=== PATIENT | male | born 1980 | race Hispanic/Latino ===

== ENCOUNTER 2020-10-17 16:51 | Emergency (ER) | payer BC | END 2020-10-17 19:15 | disposition home or self-care (01) | LOC: EDH 16:51 | DX: M79.662 Pain in left lower leg (principal); I12.0 Hypertensive chronic kidney disease with stage 5 chronic kidney disease or end stage renal disease; E11.22 Type 2 diabetes mellitus with diabetic chronic kidney disease; N18.6 End stage renal disease | CPT/HCPCS: 93971 ==

== ENCOUNTER 2020-11-18 13:02 | Inpatient (IN) | payer SELFPAY ==
[~2020-11-18] VITALS: Ht 170.2 cm; Wt 98.2 kg
[2020-11-18 14:26] LABS: BASOPHILS % (AUTO) 1.4 % (0.0-5.0); EOSINOPHILS % (AUTO) 1.9 % (0.0-8.0); HEMATOCRIT 32.7 % (42-54); LYMPHOCYTES % (AUTO) 18.5 % (21.0-51.0); MEAN CORPUSCULAR HEMOGLOBIN 29.9 pg (27.0-33.0); MEAN CORPUSCULAR HGB CONC 33.6 g/dL (32.0-36.0); MEAN CORPUSCULAR VOLUME 88.9 fL (79-99); MONOCYTES % (AUTO) 6.1 % (3.0-13.0); NEUTROPHILS % (AUTO) 71.7 % (40.0-77.0); PLATELET COUNT (AUTO) 405 K/uL (130-400); RED BLOOD CELL COUNT(AUTO) 3.68 MIL/uL (4.50-6.20); RED CELL DISTRIBUTION WIDTH 12.5 % (11.0-15.5)
[2020-11-18 14:43] LABS: POTASSIUM 3.8 mmol/L (3.5-5.1)
[2020-11-18 14:48] LABS: ALBUMIN 3.5 g/dL (3.5-5.0); BILIRUBIN,TOTAL 0.3 mg/dL (0.2-1.0)
[2020-11-18 14:51] LABS: INR 1.02 (0.85-1.15); PROTHROMBIN TIME 10.6 SEC (9.6-11.6)
[2020-11-18 14:52] LABS: PARTIAL THROMBOPLASTIN TIME 25.6 SEC (26.3-35.5)
[2020-11-18] MEDS ORDERED: MORPHINE 2 MG SYG ONE (15:01)
[2020-11-18] MEDS ORDERED: CLINDAMYCIN IVPB 600MG/50ML 50 ML IV ONE (15:57)
[2020-11-18] MEDS ORDERED: ZOSYN 3.375GM+NS 50ML 50 ML IV ONE (16:45)
[2020-11-18] MEDS ORDERED: VANCOMYCIN 1G 1.5 GM in 0.9% NACL 250ML 250 ML IV SCH (17:00)
[2020-11-18] MEDS ORDERED: ACETAMINOPHEN 325 MG TAB PO PRN ×2 (17:30)
[2020-11-18] MEDS ORDERED: ONDANSETRON 4MG INJ IV PRN (17:30)
[2020-11-18] MEDS ORDERED: VANCOMYCIN 1G/250ML KIT 250 ML IV SCH (17:30)
[2020-11-18] MEDS ORDERED: VANCOMYCIN PROTOCOL PER PHARMACY IV SCH (18:30)
[2020-11-18 18:54] LABS: HEMOGLOBIN A1C 11.4 % (4.0-6.0)
[2020-11-18] MEDS ORDERED: CARV25TA PO (20:39)
[2020-11-18] MEDS ORDERED: FOLI1TAB85 PO (20:39)
[2020-11-18] MEDS ORDERED: CALC-1125 PO (20:39)
[2020-11-18] MEDS ORDERED: AMLO-258 PO (20:39)
[2020-11-18] MEDS ORDERED: ACET-2247 PO (20:39)
[2020-11-18] MEDS ORDERED: GLIP5POW MC (20:39)
[2020-11-18] MEDS ORDERED: INSULIN HUMULIN R 100 UNIT/ML 3ML SQ SCH (21:00)
[2020-11-18 21:19] VITALS: BP 154/95
[2020-11-18] MEDS: INSULIN LISPRO 100 UNIT/ML 3ML SQ SCH (22:00)
[2020-11-18] MEDS: ZOSYN 3.375GM+NS 50ML 50 ML IV SCH (22:38)
[2020-11-18] MEDS: FAMOTIDINE 20MG VIAL IV SCH (22:39)
[2020-11-18] MEDS: MORPHINE 2 MG SYG IV PRN (22:41)
[2020-11-18] MEDS: HEPARIN 5,000 UNIT VIAL SQ SCH (22:55)
[2020-11-18] MEDS: INSULIN GLARGINE 100 UNITS/ML 10 ML VIAL SQ SCH (22:56)
[2020-11-19 00:19] VITALS: BP 139/79
[2020-11-19] MEDS: MORPHINE 2 MG SYG IV PRN (03:34)
[2020-11-19 03:54] VITALS: BP 139/70
[2020-11-19 06:13] LABS: BASOPHILS % (AUTO) 1.1 % (0.0-5.0); HEMATOCRIT 32.4 % (42-54); LYMPHOCYTES % (AUTO) 22.1 % (21.0-51.0); MEAN CORPUSCULAR HEMOGLOBIN 29.2 pg (27.0-33.0); MEAN CORPUSCULAR HGB CONC 31.8 g/dL (32.0-36.0); MEAN CORPUSCULAR VOLUME 91.8 fL (79-99); MONOCYTES % (AUTO) 7.7 % (3.0-13.0); NEUTROPHILS % (AUTO) 64.8 % (40.0-77.0); PLATELET COUNT (AUTO) 420 K/uL (130-400); RED BLOOD CELL COUNT(AUTO) 3.53 MIL/uL (4.50-6.20); RED CELL DISTRIBUTION WIDTH 12.5 % (11.0-15.5); WHITE BLOOD COUNT (AUTO) 10.7 K/uL (4.8-10.8)
[2020-11-19] MEDS: ZOSYN 3.375GM+NS 50ML 50 ML IV SCH ×2 (06:26→20:40)
[2020-11-19 06:28] LABS: PROTHROMBIN TIME 10.9 SEC (9.6-11.6)
[2020-11-19 06:30] LABS: PARTIAL THROMBOPLASTIN TIME 26.9 SEC (26.3-35.5)
[2020-11-19 06:31] LABS: BILIRUBIN,TOTAL 0.5 mg/dL (0.2-1.0); CREATININE 6.4 mg/dL (0.5-1.5); TOTAL PROTEIN, SERUM 7.1 g/dL (6.0-8.3)
[2020-11-19] MEDS: INSULIN LISPRO 100 UNIT/ML 3ML SQ SCH ×7 (06:39→20:38)
[2020-11-19] MEDS ORDERED: INSULIN LISPRO 100 UNIT/ML 3ML SQ SCH (07:30)
[2020-11-19 08:00] VITALS: BP 170/87
[2020-11-19] MEDS: HEPARIN 5,000 UNIT VIAL SQ SCH ×2 (09:17→20:36)
[2020-11-19 12:00] VITALS: BP 126/44
[2020-11-19 16:00] VITALS: BP 163/79
[2020-11-19] MEDS: ACETAMINOPHEN WITH CODEINE 1 TAB TAB PO PRN (17:11)
[2020-11-19 20:08] VITALS: BP 156/77
[2020-11-19] MEDS: INSULIN GLARGINE 100 UNITS/ML 10 ML VIAL SQ SCH (20:37)
[2020-11-19] MEDS: FAMOTIDINE 20MG VIAL IV SCH (20:40)
[2020-11-20] VITALS (7 sets, daily range): BP systolic 146–176; BP diastolic 70–90
[2020-11-20] MEDS: ACETAMINOPHEN WITH CODEINE 1 TAB TAB PO PRN ×4 (04:53→23:56)
[2020-11-20 05:45] LABS: EOSINOPHILS % (AUTO) 4.5 % (0.0-8.0); HEMATOCRIT 31.4 % (42-54); LYMPHOCYTES % (AUTO) 26.7 % (21.0-51.0); MEAN CORPUSCULAR HEMOGLOBIN 30.1 pg (27.0-33.0); MEAN CORPUSCULAR HGB CONC 32.8 g/dL (32.0-36.0); MEAN CORPUSCULAR VOLUME 91.8 fL (79-99); MONOCYTES % (AUTO) 8.2 % (3.0-13.0); NEUTROPHILS % (AUTO) 59.2 % (40.0-77.0); PLATELET COUNT (AUTO) 425 K/uL (130-400); RED BLOOD CELL COUNT(AUTO) 3.42 MIL/uL (4.50-6.20); RED CELL DISTRIBUTION WIDTH 12.4 % (11.0-15.5); WHITE BLOOD COUNT (AUTO) 10.8 K/uL (4.8-10.8)
[2020-11-20 06:05] LABS: POTASSIUM 4.3 mmol/L (3.5-5.1)
[2020-11-20] MEDS: INSULIN LISPRO 100 UNIT/ML 3ML SQ SCH ×7 (06:30→21:00)
[2020-11-20] MEDS: ZOSYN 3.375GM+NS 50ML 50 ML IV SCH (08:20)
[2020-11-20] MEDS: HEPARIN 5,000 UNIT VIAL SQ SCH ×2 (08:29→22:24)
[2020-11-20] MEDS ORDERED: IOHEXOL 350 MG/ML 100ML INFUS..BTL IV ONE (08:36)
[2020-11-20] MEDS: INSULIN GLARGINE 100 UNITS/ML 10 ML VIAL SQ SCH (22:18)
[2020-11-20] MEDS: FAMOTIDINE 20MG VIAL IV SCH (22:19)
[2020-11-21 00:14] VITALS: BP 146/82
[2020-11-21 05:02] LABS: HEMATOCRIT 31.8 % (42-54); MEAN CORPUSCULAR HEMOGLOBIN 29.9 pg (27.0-33.0); MEAN CORPUSCULAR VOLUME 90.6 fL (79-99); RED BLOOD CELL COUNT(AUTO) 3.51 MIL/uL (4.50-6.20); RED CELL DISTRIBUTION WIDTH 12.5 % (11.0-15.5); WHITE BLOOD COUNT (AUTO) 10.5 K/uL (4.8-10.8)
[2020-11-21] MEDS: ACETAMINOPHEN WITH CODEINE 1 TAB TAB PO PRN ×2 (05:09→09:32)
[2020-11-21 05:17] LABS: PHOSPHORUS 5.6 mg/dL (2.5-4.9); POTASSIUM 4.6 mmol/L (3.5-5.1)
[2020-11-21] MEDS: INSULIN LISPRO 100 UNIT/ML 3ML SQ SCH ×7 (05:24→21:00)
[2020-11-21 05:26] LABS: CREATININE 9.4 mg/dL (0.5-1.5)
[2020-11-21 05:57] VITALS: BP 155/74
[2020-11-21 07:39] VITALS: BP 148/76
[2020-11-21] MEDS: HEPARIN 5,000 UNIT VIAL SQ SCH ×2 (09:37→21:00)
[2020-11-21 11:35] VITALS: BP 161/85
[2020-11-21] MEDS ORDERED: VANCOMYCIN 1G/250ML KIT 250 ML IV SCH (15:00)
[2020-11-21 15:46] VITALS: BP 173/89
[2020-11-21] MEDS: INSULIN GLARGINE 100 UNITS/ML 10 ML VIAL SQ SCH (21:00)
[2020-11-21 21:15] VITALS: BP 144/82
[2020-11-21] MEDS: FAMOTIDINE 20MG VIAL IV SCH (23:22)
[2020-11-22 00:55] VITALS: BP 145/75
[2020-11-22 04:48] VITALS: BP 134/69
[2020-11-22] MEDS: ACETAMINOPHEN WITH CODEINE 1 TAB TAB PO PRN ×2 (05:31→18:27)
[2020-11-22 06:06] LABS: BASOPHILS % (AUTO) 1.4 % (0.0-5.0); EOSINOPHILS % (AUTO) 4.2 % (0.0-8.0); HEMATOCRIT 33.6 % (42-54); LYMPHOCYTES % (AUTO) 27.5 % (21.0-51.0); MEAN CORPUSCULAR HEMOGLOBIN 29.5 pg (27.0-33.0); MEAN CORPUSCULAR HGB CONC 32.4 g/dL (32.0-36.0); MEAN CORPUSCULAR VOLUME 91.1 fL (79-99); MONOCYTES % (AUTO) 8.5 % (3.0-13.0); NEUTROPHILS % (AUTO) 57.7 % (40.0-77.0); PLATELET COUNT (AUTO) 477 K/uL (130-400); RED BLOOD CELL COUNT(AUTO) 3.69 MIL/uL (4.50-6.20); RED CELL DISTRIBUTION WIDTH 12.4 % (11.0-15.5); WHITE BLOOD COUNT (AUTO) 9.8 K/uL (4.8-10.8)
[2020-11-22 06:31] LABS: CREATININE 8.9 mg/dL (0.5-1.5)
[2020-11-22] MEDS: INSULIN LISPRO 100 UNIT/ML 3ML SQ SCH ×7 (07:30→21:00)
[2020-11-22 10:12] VITALS: BP 102/67
[2020-11-22] MEDS: HEPARIN 5,000 UNIT VIAL SQ SCH ×2 (10:15→22:00)
[2020-11-22 12:00] VITALS: BP 127/74
[2020-11-22 17:37] VITALS: BP 151/79
[2020-11-22 20:00] VITALS: BP 153/82
[2020-11-22] MEDS: FAMOTIDINE 20MG VIAL IV SCH (21:57)
[2020-11-22] MEDS: INSULIN GLARGINE 100 UNITS/ML 10 ML VIAL SQ SCH (22:00)
[2020-11-23] VITALS: BP 151/87
[2020-11-23 04:00] VITALS: BP 142/76
[2020-11-23 06:01] LABS: BASOPHILS % (AUTO) 0.7 % (0.0-5.0); EOSINOPHILS % (AUTO) 4.7 % (0.0-8.0); HEMATOCRIT 31.8 % (42-54); LYMPHOCYTES % (AUTO) 30.7 % (21.0-51.0); MEAN CORPUSCULAR HEMOGLOBIN 29.5 pg (27.0-33.0); MEAN CORPUSCULAR HGB CONC 33.3 g/dL (32.0-36.0); MEAN CORPUSCULAR VOLUME 88.6 fL (79-99); NEUTROPHILS % (AUTO) 55.4 % (40.0-77.0); PLATELET COUNT (AUTO) 440 K/uL (130-400); RED BLOOD CELL COUNT(AUTO) 3.59 MIL/uL (4.50-6.20); RED CELL DISTRIBUTION WIDTH 12.3 % (11.0-15.5); WHITE BLOOD COUNT (AUTO) 9.6 K/uL (4.8-10.8)
[2020-11-23 06:22] LABS: PHOSPHORUS 5.9 mg/dL (2.5-4.9)
[2020-11-23 06:25] LABS: CREATININE 11.4 mg/dL (0.5-1.5)
[2020-11-23] MEDS: INSULIN LISPRO 100 UNIT/ML 3ML SQ SCH ×7 (07:30→21:00)
[2020-11-23 08:00] VITALS: BP 167/83
[2020-11-23] MEDS: HEPARIN 5,000 UNIT VIAL SQ SCH ×2 (09:00→21:00)
[2020-11-23 11:40] VITALS: BP 156/81
[2020-11-23] MEDS: ACETAMINOPHEN WITH CODEINE 1 TAB TAB PO PRN ×2 (13:06→23:47)
[2020-11-23] MEDS ORDERED: CEFAZOLIN 3GM /D5W 100ML 100 ML IV SCH (14:00)
[2020-11-23 16:00] VITALS: BP 131/79
[2020-11-23 20:00] VITALS: BP 142/77
[2020-11-23 21:07] LABS: HEPATITIS Bs ANTIGEN SCREEN P Negative (Negative)
[2020-11-23] MEDS: FAMOTIDINE 20MG VIAL IV SCH (21:37)
[2020-11-23] MEDS: INSULIN GLARGINE 100 UNITS/ML 10 ML VIAL SQ SCH (21:46)
[2020-11-24] VITALS (27 sets, daily range): BP systolic 124–154; BP diastolic 69–85
[2020-11-24 05:40] LABS: POTASSIUM 4.2 mmol/L (3.5-5.1)
[2020-11-24 05:55] LABS: CREATININE 8.6 mg/dL (0.5-1.5)
[2020-11-24] MEDS: INSULIN LISPRO 100 UNIT/ML 3ML SQ SCH ×7 (06:40→20:20)
[2020-11-24] MEDS: HEPARIN 5,000 UNIT VIAL SQ SCH ×2 (09:00→21:00)
[2020-11-24] MEDS ORDERED: CEFAZOLIN SODIUM 1 GM VIAL ONE (10:19)
[2020-11-24] MEDS ORDERED: SUCCINYLCHOLINE CHLORIDE 20 MG/ML 10 ML VIAL ONE (10:43)
[2020-11-24] MEDS ORDERED: LIDOCAINE PF 100MG/5ML (2%) SYRINGE 5ML ONE (10:43)
[2020-11-24] MEDS ORDERED: FENTANYL CITRATE PF 50 MCG/1 ML 2ML VIAL ONE ×2 (10:45→11:17)
[2020-11-24] MEDS ORDERED: PROPOFOL 10 MG/ML 20ML VIAL IV ONE (10:45)
[2020-11-24] MEDS ORDERED: EPHEDRINE SULFATE 50 MG/ML AMPULE ONE (11:12)
[2020-11-24] MEDS ORDERED: HEPARIN 10,000 UNIT/10ML (1,000 UNIT/ML) VIAL ONE (11:28)
[2020-11-24] MEDS ORDERED: MEPERIDINE-PF 25 MG/ML SYG ONE (12:23)
[2020-11-24] MEDS ORDERED: METOCLOPRAMIDE 10 MG/2 ML VIAL ONE (13:57)
[2020-11-24] MEDS: FAMOTIDINE 20MG VIAL IV SCH (20:18)
[2020-11-24] MEDS: INSULIN GLARGINE 100 UNITS/ML 10 ML VIAL SQ SCH (20:22)
[2020-11-25] MEDS: ACETAMINOPHEN WITH CODEINE 1 TAB TAB PO PRN (00:03)
[2020-11-25 03:24] VITALS: BP 147/81
[2020-11-25 05:36] LABS: HEMATOCRIT 31.9 % (42-54); MEAN CORPUSCULAR HEMOGLOBIN 29.6 pg (27.0-33.0); MEAN CORPUSCULAR HGB CONC 32.6 g/dL (32.0-36.0); MEAN CORPUSCULAR VOLUME 90.9 fL (79-99); PLATELET COUNT (AUTO) 440 K/uL (130-400); RED BLOOD CELL COUNT(AUTO) 3.51 MIL/uL (4.50-6.20); RED CELL DISTRIBUTION WIDTH 12.4 % (11.0-15.5)
[2020-11-25 05:56] LABS: BASOPHILS % (MANUAL) 1 % (0-2); EOSINOPHILS % (MANUAL) 2 % (1-6); LYMPHOCYTES % (MANUAL) 29 % (22-44); MAN.DIFF COMMENT-IMPRESSION MANUAL DIFFERENTIAL; MONOCYTES % (MANUAL) 6 % (2-9); POTASSIUM 4.7 mmol/L (3.5-5.1); REACTIVE LYMPHOCYTES 3 % (0-0); SEGMENTED NEUTROPHILS % 59 % (40-70)
[2020-11-25 05:57] LABS: PLATELET MORPHOLOGY COMMENT ADEQUATE
[2020-11-25 06:01] LABS: CREATININE 11.4 mg/dL (0.5-1.5)
[2020-11-25 07:15] LABS: HEPATITIS A ANTIBODY IGM Negative (Negative); HEPATITIS B CORE IGM Negative (Negative); HEPATITIS Bs ANTIGEN SCREEN P Negative (Negative)
[2020-11-25 07:19] VITALS: BP 139/76
[2020-11-25] MEDS: INSULIN LISPRO 100 UNIT/ML 3ML SQ SCH ×4 (07:28→13:20)
[2020-11-25] MEDS: HEPARIN 5,000 UNIT VIAL SQ SCH (08:51)
[2020-11-25 10:45] VITALS: BP 134/80
[2020-11-25] MEDS ORDERED: HEPARIN 5,000 UNIT VIAL SQ SCH (12:00)
== END 2020-11-25 14:15 | disposition home or self-care (01) | DRG 252 ==
LOC: EDH 13:02 → EDHIP 17:19 → 3DH 19:41
PROVIDERS: ADMIT Internal Medicine; ATTEND Internal Medicine
PROC: 5A1D70Z Performance of Urinary Filtration, Intermittent, Less than 6 Hours Per Day (ICD-10-PCS; 2020-11-19)
PROC: 5A1D70Z Performance of Urinary Filtration, Intermittent, Less than 6 Hours Per Day (ICD-10-PCS; 2020-11-21)
PROC: 5A1D70Z Performance of Urinary Filtration, Intermittent, Less than 6 Hours Per Day (ICD-10-PCS; 2020-11-23)
PROC: 05SB0ZZ Reposition Right Basilic Vein, Open Approach (ICD-10-PCS; principal; 2020-11-24 11:18)
DX: T82.590A Other mechanical complication of surgically created arteriovenous fistula, initial encounter (principal); K72.00 Acute and subacute hepatic failure without coma; N18.6 End stage renal disease; I12.0 Hypertensive chronic kidney disease with stage 5 chronic kidney disease or end stage renal disease; K72.10 Chronic hepatic failure without coma; E11.22 Type 2 diabetes mellitus with diabetic chronic kidney disease; D64.9 Anemia, unspecified; E11.51 Type 2 diabetes mellitus with diabetic peripheral angiopathy without gangrene; Y83.8 Other surgical procedures as the cause of abnormal reaction of the patient, or of later complication, without mention of misadventure at the time of the procedure; R53.81 Other malaise; E55.9 Vitamin D deficiency, unspecified; E66.9 Obesity, unspecified; S80.12XA Contusion of left lower leg, initial encounter; Z86.16 Personal history of COVID-19; Z68.33 Body mass index [BMI] 33.0-33.9, adult; Y92.89 Other specified places as the place of occurrence of the external cause; Z99.2 Dependence on renal dialysis; Z83.3 Family history of diabetes mellitus; Z82.49 Family history of ischemic heart disease and other diseases of the circulatory system; Z80.0 Family history of malignant neoplasm of digestive organs; Z83.79 Family history of other diseases of the digestive system
CPT/HCPCS: 36415; 71045; 73701; 76882; 80048; 80053; 80074; 80202; 82550; 82948; 83036; 84100; 84145; 84484; 85025; 85027; 85610; 85651; 85730; 86140; 86704; 86706; 86850; 86900; 86901; 87040; 87340; 87520; 90935; 93005; 93970; 93971; C1729; G0378; J0330; J0690; J1644; J2001; J2175; J2405; J2543; J2704; J2765; J3010; J3370; J3490; J7030; J7050; Q9967

== ENCOUNTER 2024-01-14 06:29 | Day surgery (SDC) | payer BC, OTHER ==
[~2024-01-14] VITALS: Ht 170.2 cm; Wt 105.2 kg
[2024-01-14] VITALS (11 sets, daily range): BP systolic 107–152; BP diastolic 56–83; PULSE 72–84; RESP 14–19
[~2024-01-14 06:29] MED LIST: AMLO-258 PO; ATOR40TA69 PO; CARV25TA PO; CHOL200074 PO; FOLI1TAB85 PO; GLIP5POW MC; LOSA50TA64 PO
[2024-01-14] MEDS: 0.9%NACL 1000ML 1,000 ML IV ONE (07:01)
[2024-01-14] MEDS ORDERED: PROPOFOL 10 MG/ML 20ML VIAL IV ONE (07:09)
[2024-01-14] MEDS ORDERED: LIDOCAINE HCL 1% 20 ML VIAL ONE (07:09)
== END 2024-01-14 08:55 | disposition home or self-care (01) ==
LOC: ENDO 06:29 → DAH 06:29 → EDSTATUS 08:50 → ENDO 08:55
PROVIDERS: ATTEND Internal Medicine Gastroenterology
DX: Z12.11 Encounter for screening for malignant neoplasm of colon (principal); R12 Heartburn; R14.0 Abdominal distension (gaseous); K63.5 Polyp of colon; K62.1 Rectal polyp; K59.00 Constipation, unspecified; K21.00 Gastro-esophageal reflux disease with esophagitis, without bleeding; K29.50 Unspecified chronic gastritis without bleeding; E78.2 Mixed hyperlipidemia; E11.22 Type 2 diabetes mellitus with diabetic chronic kidney disease; I12.0 Hypertensive chronic kidney disease with stage 5 chronic kidney disease or end stage renal disease; N18.6 End stage renal disease; I25.10 Atherosclerotic heart disease of native coronary artery without angina pectoris; Z80.0 Family history of malignant neoplasm of digestive organs; Z95.5 Presence of coronary angioplasty implant and graft; Z98.890 Other specified postprocedural states; Z79.84 Long term (current) use of oral hypoglycemic drugs; Z79.899 Other long term (current) drug therapy; Z99.2 Dependence on renal dialysis
CPT/HCPCS: 82948 ×2; 43239; 45380; J7030 ×2; J2704; A4620; A4215 ×2; A4223; A7002; A4222; A4221; A4663; A4606; J3490